=== PATIENT | male | born 1960 | race Caucasian/White ===

== ENCOUNTER 2022-06-17 07:16 | Inpatient (IN) | payer OTHER ==
[~2022-06-17] VITALS: Ht 180.3 cm; Wt 95.2 kg
[~2022-06-17 07:16] MED LIST: BIAXIN; FLUSAL2505 IH; FLUT.05NI; PRED10 PO
[2022-06-17 07:56] LABS: BASOPHILS ABSOLUTE AUTO 0.03 K/mm3 (0.00-0.23); BASOPHILS PERCENT AUTO 1 % (0-2); EOSINOPHILS ABSOLUTE AUTO 0.07 K/mm3 (0.00-0.68); EOSINOPHILS PERCENT AUTO 2 % (0-6); Hematocrit 43.8 % (37.0-53.0); Hemoglobin 14.9 g/dL (13.5-17.5); IMMATURE GRAN ABSOLUTE AUTO 0.01 K/mm3 (0.00-0.10); IMMATURE GRAN PERCENT AUTO 0 % (0-1); LYMPHOCYTES ABSOLUTE AUTO 0.88 K/mm3 (0.84-5.20); LYMPHOCYTES PERCENT AUTO 19 % (21-46); MONOCYTES ABSOLUTE AUTO 0.42 K/mm3 (0.16-1.47); MONOCYTES PERCENT AUTO 9 % (4-13); Mean Corpuscular HGB 29.4 pg (26.0-34.0); Mean Corpuscular Volume 87 fL (80-100); Mean Platelet Volume 9.3 fL (9.1-12.4); NEUTROPHILS ABSOLUTE AUTO 3.13 K/mm3 (1.96-9.15); NEUTROPHILS PERCENT AUTO 69 % (41-73); Platelet Count 280 K/mm3 (150-400); RDW Coefficient Variation 13.1 % (11.7-14.2); RDW Standard Deviation 41.1 fL (35.1-46.3); Red Blood Cell Count 5.06 M/mm3 (4.30-5.90); White Blood Cell Count 4.54 K/mm3 (4.00-11.30)
[2022-06-17 08:16] LABS: Albumin, Blood 3.8 g/dL (3.4-5.0); Albumin/Globulin Ratio 1.1 (0.8-1.8); Bilirubin, Total 0.3 mg/dL (0.1-1.0); Bun/Creatinine Ratio 20.9 (12.0-20.0); Calcium, Blood 8.8 mg/dL (8.5-10.1); Creatinine, Blood 0.91 mg/dL (0.60-1.20); Globulin, Blood 3.5 g/dL (2.2-4.0); Potassium, Blood 3.6 mmol/L (3.5-5.5); Total Protein, Blood 7.3 g/dL (6.4-8.2)
[2022-06-17 16:37] LABS: U Amphetamine Screen Not Detected; U Barbituate Screen Not Detected; U Benzodiazapine Screen Not Detected; U Buprenorphine Screen Not Detected; U Cannabinoids Screen Not Detected; U Cocaine Screen Not Detected; U Methadone Screen Not Detected; U Methamphetamine Screen Not Detected; U Opiates Screen Not Detected; U Oxycodone Screen Not Detected; U Phencyclidine Screen Not Detected; U Propoxyphene Screen Not Detected
--- NOTE | 2022-06-17 19:17 | NUR ---
ADMIT NOTE PATIENT NEW ADMIT TO UNIT FROM ER AT 1700 FOR ACTUE CVA. ALERT AND ORIENTED. RIGHT SIDE DEFICIT. RIGHT ARM WEAK, RIGHT MOUTH DROOP, SLURRED SPEECH, RIGHT LEG WEAKNESS. ABLE TO STAND AND PIVOT FROM GURNEY TO BED. SBA TO BATHROOM. VOIDING WELL. PASSED BESIDE SPEECH EVAL AND GIVEN A REGULAR DINNER. TOLERATING LIQUIDS. SALINE LOCKED. TELE BRADYCARDIA IN THE 50S. SON PRESENT IN THE ROOM. REPORT GIVEN TO DESIGNER/WRITER RN.
--- NOTE | 2022-06-17 20:08 | NUR ---
SPOKE WITH BEREKET AT [facility] [place][NOTE 3] WHO IS SENDING AN UPDATED MEDICATION LIST FOR THE PATIENT.
--- NOTE | 2022-06-18 04:08 | NUR ---
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 PLEASANT AND COOPERATIVE WITH CARE. TELE SINUS RHYTHM, OCCASIONALLY DIPPING DOWN INTO SANDIE. AMBULATES TO BATHROOM WITH FWW & SBA. RIGHT-SIDED DEFICIT, SLIGHT RIGHT-SIDED FOOT DROP. VSS. RECEIVED MEDICATION LIST FROM [facility] AND RECONCILED. SCD'S NOT IN PLACE D/T FREQUENT TRIPS TO THE BATHROOM. WILL REPORT TO ONCOMING RN.
[2022-06-18] MEDS ORDERED: ALBU90OI INH (04:31)
[2022-06-18] MEDS ORDERED: TENORETIC 1001 EACH PO (04:34)
[2022-06-18] MEDS ORDERED: CELE200 PO (04:35)
[2022-06-18] MEDS ORDERED: DOCU100 PO (05:04)
[2022-06-18] MEDS ORDERED: CARDURA4 MG PO (05:07)
[2022-06-18] MEDS ORDERED: MONT10T PO (05:07)
[2022-06-18 05:08] LABS: CHOL/HDL RATIO 3.8; Cholesterol 232 mg/dL (50-200); HDL Cholesterol 61 mg/dL (>39); LDL/HDL RATIO 2.4; Low Density Lipoprotein Chol 146 mg/dL (0-110); Triglycerides 125 mg/dL (30-160); Very Low Density Lipoprot Chol 25 mg/dL (6-32)
[2022-06-18] MEDS ORDERED: OMEPRAZOLE MAGN20 MG PO (05:09)
[2022-06-18] MEDS ORDERED: OMEP20ER PO (05:09)
[2022-06-18] MEDS ORDERED: SILD50TA PO (05:10)
--- NOTE | 2022-06-18 06:43 | NUR ---
PT FOUND ON FLOOR IN BATHROOM AFTER USING PULL CORD TO CALL FOR ASSISTANCE. HAS USED THE CALL LIGHT CONSISTENTLY T/O THE NIGHT TO NOTIFY STAFF WHEN GETTING UP TO GO TO THE BATHROOM FOR SBA AND THE PULLCORD IN THE BATHROOM TO NOTIFY STAFF WHEN AMBULATING FROM BATHROOM TO BED FOR SBA. DID NOT USE CALL LIGHT THIS TIME. REPORTEDLY GOT "FEET TANGLED UP" AND SAT HIMSELF DOWN. DENIES HITTING HEAD OR LOSING CONSCIOUSNESS. NO C/O PAIN. VSS. SON PRESENT AT TIME OF FALL. HOSPITALIST NOTIFIED.
[2022-06-18] MEDS ORDERED: ATOR80 PO (11:26)
[2022-06-18] MEDS ORDERED: Acetaminophen325 M1 PO (11:26)
[2022-06-18] MEDS ORDERED: ASPI81CH PO (11:26)
[2022-06-18] MEDS ORDERED: CLOP75 PO (11:27)
--- NOTE | 2022-06-18 15:20 | NUR ---
PATIENT DISCHARGED AT 1345. PATIENT WAS PROVIDED WITH DISCHARGE INSTRUCTIONS, FOLLOW UP RECOMMENDATIONS AND EDUCATION. HIS IV WAS REMOVED AND TELEMETRY DISCONTINUED. HE WILL BE HAVING HOME HEALTH FOR PT AND OT. 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 HE WAS GIVEN A RIDE HOME WITH HIS SON. HIS DAUGHTER WAS ALSO HERE DURING DISCHARGE TO LISTEN TO THE INFOMATION SO SHE COULD ASSIST WITH FOLLOW UP RECOMMENDATIONS.
== END 2022-06-18 14:46 | disposition home health service (06) | DRG 66 ==
LOC: ER 07:16 → ERHOLD 10:34 → MEDS 17:00
PROVIDERS: Nurse Practitioner Acute Care; Student in an Organized Health Care Education/Training Program; ADMIT Internal Medicine
DX: I63.9 Cerebral infarction, unspecified (principal); I10 Essential (primary) hypertension; R29.704 NIHSS score 4; R29.810 Facial weakness; R27.0 Ataxia, unspecified; R47.1 Dysarthria and anarthria; K21.9 Gastro-esophageal reflux disease without esophagitis; J45.20 Mild intermittent asthma, uncomplicated; M54.9 Dorsalgia, unspecified; G89.29 Other chronic pain; R47.81 Slurred speech; G83.21 Monoplegia of upper limb affecting right dominant side; Z98.890 Other specified postprocedural states; Z79.51 Long term (current) use of inhaled steroids; Z79.52 Long term (current) use of systemic steroids
CPT/HCPCS: 36415; 70450; 70496; 70498; 70551; 80053; 80061; 82947; 83036; 84443; 85025; 85730; 92523; 92610; 93005; 93010; 93306; 97116; 97162; 97530; A9270; J1650; J7030; Q9967